=== PATIENT | female | born 1965 | race American Indian/Alaskan Native ===

== ENCOUNTER 2017-12-24 17:57 | Emergency (ER) | payer OTHER ==
[2017-12-24] MEDS ORDERED: CATAPRES PO ONE (18:30)
[2017-12-24] MEDS ORDERED: CATAPRES ONE (18:31)
[2017-12-24 18:35] LABS: Basophils # (Auto) 0.1 K/mm3 (0.0-0.1); Eosinophils # (Auto) 0.2 K/mm3 (0.0-0.4); Eosinophils % (Auto) 2.2 % (0.0-4.3); Hemoglobin 12.4 gm/dl (10.1-14.3); Lymphocytes # (Auto) 2.8 K/mm3 (1.2-5.4); Mean Corpuscular HGB Conc 33 % (30-34); Mean Corpuscular Hemoglobin 27 pg (28-32); Mean Corpuscular Volume 81 fl (79-97); Monocytes # (Auto) 0.8 K/mm3 (0.0-0.8); Monocytes % (Auto) 9.9 % (0.0-7.3); Platelet Count 302 K/mm3 (140-440); Red Blood Count 4.58 M/mm3 (3.65-5.03); Red Cell Distribution Width 15.1 % (13.2-15.2)
[2017-12-24 18:43] LABS: BUN/Creatinine Ratio 14; Blood Urea Nitrogen 11 mg/dL (7-17); Calcium 9.2 mg/dL (8.4-10.2); Hemolysis Index 15
[2017-12-24] MEDS ORDERED: APRESOLINE IV ONE (22:48)
--- NOTE | 2017-12-24 23:11 | Emergency Department Report ---
HPI - General Chief Complaint: High BP Time Seen by Provider: 12/24/17 22:48 - HPI HPI: [address] 26 The patient is a 52-year-old female presenting with chief complaint of hypertension. The patient states she went to her spinal clinic today in preparation for procedure but on recheck in the patient was found hypertensive at 228/134. The patient was sent to the ED for management. Patient denied complaints of any type including headache chest pain or shortness of breath. Patient currently asymptomatic. The patient states she is recently diagnosed hypertension and her primary physician ordered some blood pressure medication for her but has not been delivered yet. Patient does not recall the name of the medication Location: Cardiovascular system Duration: [See above] Quality: Hypertensive Severity: 228/134 Modifying factors: [see above] Context: [see above] Mode of transportation: The patient drove herself to the emergency department and there are no visitors present ED Past Medical Hx - Past Medical History Previous Medical History?: No - Surgical History Past Surgical History?: No - Family History Family history: no significant - Social History Smoking Status: Never Smoker Substance Use Type: None (denies illicit drug use) - Medications Home Medications: Home Medications Medication Instructions Recorded Confirmed Last Taken Type amLODIPine [Norvasc] 5 mg PO DAILY #30 tab 12/24/17 Unknown Rx ED Review of Systems ROS: Stated complaint: HTN Other details as noted in HPI Eyes: denies: eye pain ENT: denies: throat pain Respiratory: denies: shortness of breath Cardiovascular: denies: chest pain Gastrointestinal: denies: abdominal pain, nausea, vomiting Musculoskeletal: denies: back pain Neurological: denies: headache Physical Exam - Physical Exam Vital Signs: Vital Signs 12/24/17 12/24/17 12/24/17 18:00 18:36 21:25 Temperature 98.8 F Pulse Rate 94 H Respiratory 16 Rate Blood Pressure 222/108 228/118 Blood Pressure 204/109 [Right] O2 Sat by Pulse 98 Oximetry 12/24/17 12/24/17 21:30 22:37 Temperature Pulse Rate 80 Respiratory 18 Rate Blood Pressure Blood Pressure 204/109 188/111 [Right] O2 Sat by Pulse 100 Oximetry Physical Exam: GENERAL: The patient is well-developed well-nourished female sitting on stretcher not appearing to be in acute distress. [] HEENT: Normocephalic. Atraumatic. Extraocular motions are intact. Patient has moist mucous membranes. NECK: Supple. No meningitic signs are noted. There is no adenopathy noted. CHEST/LUNGS: Clear to auscultation. There is no respiratory distress noted. HEART/CARDIOVASCULAR: Regular. There is no tachycardia. There is no gallop rub or murmur. ABDOMEN: Abdomen is soft, nontender. Patient has normal bowel sounds. There is no abdominal distention. SKIN: There is no rash. There is no edema. There is no diaphoresis. NEURO: The patient is awake, alert, and oriented. The patient is cooperative. The patient has no focal neurologic deficits. The patient has normal speech and gait. Cranial nerves II through XII grossly intact, no drift MUSCULOSKELETAL: There is no evidence of acute injury. ED Course Vital Signs 12/24/17 12/24/17 12/24/17 18:00 18:36 21:25 Temperature 98.8 F Pulse Rate 94 H Respiratory 16 Rate Blood Pressure 222/108 228/118 Blood Pressure 204/109 [Right] O2 Sat by Pulse 98 Oximetry 12/24/17 12/24/17 21:30 22:37 Temperature Pulse Rate 80 Respiratory 18 Rate Blood Pressure Blood Pressure 204/109 188/111 [Right] O2 Sat by Pulse 100 Oximetry - Reevaluation(s) Reevaluation #1: 12/24/17 23:45 Systolic decreased to 170 ED Medical Decision Making - Lab Data Result diagrams: 12/24/17 18:14 12/24/17 18:14 Laboratory Tests 12/24/17 12/24/17 18:14 18:14 WBC 8.5 RBC 4.58 Hgb 12.4 Hct 37.0 MCV 81 MCH 27 L MCHC 33 RDW 15.1 Plt Count 302 Lymph % (Auto) 33.0 [place] % (Auto) 9.9 H Eos % (Auto) 2.2 Baso % (Auto) 1.0 Lymph # 2.8 [place] # 0.8 Eos # 0.2 Baso # 0.1 Seg Neutrophils % 53.9 Seg Neutrophils # 4.6 Sodium 141 Potassium 4.0 Chloride 102.0 Carbon Dioxide 28 Anion Gap 15 BUN 11 Creatinine 0.8 Estimated GFR > 60 BUN/Creatinine Ratio 14 Glucose 103 H Calcium 9.2 - EKG Data -: EKG Interpreted by Ok EKG shows normal: sinus rhythm Rate: normal - EKG Data When compared to previous EKG there are: previous EKG unavailable Interpretation: other (no ischemic changes seen) - Differential Diagnosis hypertension Critical care attestation.: If time is entered above; I have spent that time in minutes in the direct care of this critically ill patient, excluding procedure time. ED Disposition Clinical Impression: Hypertension Disposition: DC-01 TO HOME OR SELFCARE Is pt being admited?: No Does the pt Need Aspirin: No Condition: Stable Instructions: Hypertension (ED) Additional Instructions: Return to the emergency department immediately should you develop worsening symptoms, fever, inability to tolerate food or liquid or any other concerns. Prescriptions: amLODIPine [Norvasc] 5 mg PO DAILY #30 tab [facility]Other] - 3-5 Days Time of Disposition: 23:45
[2017-12-24 23:45] VITALS: BP 170/95
== END 2017-12-25 00:21 | disposition home or self-care (01) ==
LOC: ED 17:57
DX: I10 Essential (primary) hypertension (principal)
CPT/HCPCS: 36415; 80048; 85025; 93005; 93010; 96374; 99283; J0360

== ENCOUNTER 2019-06-15 11:27 | Emergency (ER) | payer OTHER ==
--- NOTE | 2019-06-15 12:03 | Event Note ---
ED Screening Note ED Screening Note: states she went to the eye doctor and had elevated blood pressure was advised to be seen in the ED states it was 220/140 at the doctors office denies any hx of high blood pressure has not had her pressure checked in about two years denies any symptoms denies CP, SOB, PRESLEY, vision changes, numbness, weakness This initial assessment/diagnostic orders/clinical plan/treatment(s) is/are subject to change based on patients health status, clinical progression and re- assessment by fellow clinical providers in the ED. Further treatment and workup at subsequent clinical providers discretion. Patient/guardian urged not to elope from the ED as their condition may be serious if not clinically assessed and managed. Initial orders include: labs, EKG, UA BP in triage 261/140 will send to the MAIN ED for eval by
[2019-06-15] MEDS ORDERED: CATAPRES PO ONE (13:08)
[2019-06-15 13:11] LABS: Basophils # (Auto) 0.1 K/mm3 (0.0-0.1); Basophils % (Auto) 1.5 % (0.0-1.8); Eosinophils # (Auto) 0.1 K/mm3 (0.0-0.4); Eosinophils % (Auto) 2.2 % (0.0-4.3); Hematocrit 39.5 % (30.3-42.9); Hemoglobin 13.5 gm/dl (10.1-14.3); Lymphocytes # (Auto) 1.9 K/mm3 (1.2-5.4); Lymphocytes % (Auto) 31.7 % (13.4-35.0); Mean Corpuscular HGB Conc 34 % (30-34); Mean Corpuscular Volume 81 fl (79-97); Monocytes # (Auto) 0.5 K/mm3 (0.0-0.8); Monocytes % (Auto) 8.3 % (0.0-7.3); Platelet Count 304 K/mm3 (140-440); Red Blood Count 4.86 M/mm3 (3.65-5.03); Red Cell Distribution Width 14.2 % (13.2-15.2)
--- NOTE | 2019-06-15 13:16 | Emergency Department Report ---
ED General Adult HPI - General Chief complaint: High BP Stated complaint: BP CHECK Time Seen by Provider: 06/15/19 11:58 Source: patient Mode of arrival: Ambulatory Limitations: No Limitations - History of Present Illness Initial comments: 53 yo F sent to ED from the eye doctor for elevated BP. Pt was at the eye doctor for a regularly scheduled exam. No history of hypertension. Reports has not been to her physician [facility] since last year. Patient denies PRESLEY, dizziness, chest pain, SOB, N/V. -: unknown Severity scale (0 -10): 5 Quality: other (painless) Improves with: none Worsens with: none Associated Symptoms: denies: confusion, chest pain, headaches, nausea/vomiting, shortness of breath - Related Data Previous Rx's Medication Instructions Recorded Last Taken Type Amlodipine Besylate [Norvasc] 5 mg PO QDAY #30 tablet 06/15/19 Unknown Rx hydroCHLOROthiazide [HCTZ] 25 mg PO QDAY #30 tablet 06/15/19 Unknown Rx Allergies Allergy/AdvReac Type Severity Reaction Status Date / Time No Known Allergies Allergy Unverified 12/24/17 18:10 ED Review of Systems ROS: Stated complaint: BP CHECK Other details as noted in HPI ED Past Medical Hx - Past Medical History Previous Medical History?: Yes Hx Hypertension: Yes - Surgical History Past Surgical History?: No - Social History Smoking Status: Never Smoker Substance Use Type: None - Medications Home Medications: Home Medications Medication Instructions Recorded Confirmed Last Taken Type Amlodipine Besylate [Norvasc] 5 mg PO QDAY #30 tablet 06/15/19 Unknown Rx hydroCHLOROthiazide [HCTZ] 25 mg PO QDAY #30 tablet 06/15/19 Unknown Rx ED Physical Exam - General Limitations: No Limitations General appearance: alert, in no apparent distress - Head Head exam: Present: atraumatic, normocephalic - Eye Pupils: Present: other (dilated (from eye appt)) - ENT ENT exam: Present: mucous membranes moist - Neck Neck exam: Present: normal inspection - Respiratory Respiratory exam: Present: normal lung sounds bilaterally. Absent: respiratory distress - Cardiovascular Cardiovascular Exam: Present: regular rate, normal rhythm - GI/Abdominal GI/Abdominal exam: Present: soft. Absent: distended, tenderness - Extremities Exam Extremities exam: Present: normal inspection, full ROM - Neurological Exam Neurological exam: Present: alert, oriented X3, CN II-XII intact. Absent: motor sensory deficit - Psychiatric Psychiatric exam: Present: normal affect, normal mood - Skin Skin exam: Present: warm, dry, intact, normal color ED Course Vital Signs 06/15/19 06/15/19 06/15/19 11:58 12:41 13:26 Temperature 98.4 F Pulse Rate 94 H 78 88 Respiratory 19 18 Rate Blood Pressure 251/128 Blood Pressure 241/131 229/132 [Left] O2 Sat by Pulse 98 100 Oximetry 06/15/19 06/15/19 13:51 14:35 Temperature Pulse Rate 81 83 Respiratory 18 16 Rate Blood Pressure Blood Pressure 239/138 216/106 [Left] O2 Sat by Pulse 99 100 Oximetry ED Medical Decision Making - Lab Data Result diagrams: 06/15/19 13:00 06/15/19 13:00 - Medical Decision Making - asymptomatic HTN - renal function normal - BP improved with clonidine - no neuro deficits - pt given rx for HCTZ, norvasc - advised to f/u w/ PCP at [facility] - return precautions given - Differential Diagnosis essential HTN, renal insufficiency Critical care attestation.: If time is entered above; I have spent that time in minutes in the direct care of this critically ill patient, excluding procedure time. ED Disposition Clinical Impression: Hypertension Disposition: - TO HOME OR SELFCARE Is pt being admited?: No Condition: Stable Instructions: Hypertension (ED) Prescriptions: hydroCHLOROthiazide [HCTZ] 25 mg PO QDAY #30 tablet Amlodipine Besylate [Norvasc] 5 mg PO QDAY #30 tablet [facility]errals: [facility] [Primary Care Provider] - 3-5 Days COLIN MARIO MD [Staff Physician] - 3-5 Days [facility] [Provider Group] - 3-5 Days Time of Disposition: 14:28
[2019-06-15 13:24] LABS: Bilirubin,Urine NEG (Negative); Blood,Urine NEG (Negative); Color,Urine Straw (Yellow); Protein,Urine <15 mg/dL mg/dL (Negative); Urobilinogen,Urine < 2.0 mg/dL (<2.0)
[2019-06-15 13:34] LABS: Alanine Aminotransferase 11 units/L (7-56); Albumin 4.3 g/dL (3.9-5); BUN/Creatinine Ratio 14; Blood Urea Nitrogen 11 mg/dL (7-17); Calcium 9.6 mg/dL (8.4-10.2); Hemolysis Index 26
[2019-06-15 14:36] VITALS: BP 216/106
== END 2019-06-15 14:35 | disposition home or self-care (01) ==
LOC: ED 11:27
DX: I10 Essential (primary) hypertension (principal); Z79.899 Other long term (current) drug therapy
CPT/HCPCS: 36415; 80053; 81001; 85025; 87086; 99283